=== PATIENT | female | born 1940 | race Caucasian/White ===

== ENCOUNTER 2024-12-21 01:45 | Inpatient (IN) | payer BC, MEDICARE ==
[~2024-12-21] VITALS: Ht 152.4 cm; Wt 68.9 kg
[2024-12-21] MEDS: LEVALBUTEROL 1.25 MG 0.5ML CONCENTRATE NEB NEB ONE ×2 (02:24)
[2024-12-21 02:30] LABS: VENOUS PH 7.383 UNITS (7.330-7.430)
[2024-12-21 02:31] LABS: VENOUS BASE EXCESS -2.7 (-2.0-2.0); VENOUS HCO3 22.0 MMOL/L (23.0-27.0); VENOUS O2 SATURATION 74.9 % (60.0-80.0); VENOUS PARTIAL PRESSURE CO2 37.7 mmHg (38.0-50.0); VENOUS PARTIAL PRESSURE O2 39.9 mmHg (30.0-50.0); VENOUS STANDARD HCO3 21.7 MMOL/L; VENOUS TOTAL CO2 23.1 MMOL/L (24.0-28.0)
[2024-12-21 02:35] LABS: BASO # 0.0 10^3/uL (0.0-0.2); BASO % 0.3 % (0.0-1.0); EOS # 0.1 10^3/uL (0.0-0.5); EOS % 0.9 % (0.0-3.0); LYMPH # 2.4 10^3/uL (1.5-5.0); LYMPH % 20.8 % (24.0-44.0); MONO # 0.7 10^3/uL (0.0-0.8); MONO % 6.2 % (2.0-8.0); NEUTROPHILS # 8.1 10^3/uL (1.5-8.5); NEUTROPHILS % 71.2 % (36.0-66.0); PLATELET COUNT, AUTOMATED 248 10^3/uL (150-450)
[2024-12-21 03:04] LABS: CPK CREATINE PHOSPHOKINASE 52.0 U/L (34-145)
[2024-12-21 03:05] LABS: ALT/SGPT 34.0 U/L (7.0-40); AST/SGOT 24.0 U/L (<34); CALCIUM LEVEL 9.7 MG/DL (8.3-10.6); CARBON DIOXIDE LEVEL 23.0 MMOL/L (20-31); CHLORIDE LEVEL 102.0 MMOL/L (98-107); CK-MB VALUE MASS 4.4 NG/ML (<3.6); CREATININE FOR GFR 0.66 MG/DL (0.55-1.30); GLOMERULAR FILTRATION RATE 85.4 (>32); MB/CK RELATIVE INDEX 8.46 (< OR =4); POTASSIUM SERUM 4.1 MMOL/L (3.5-5.1); SODIUM LEVEL 137.0 MMOL/L (136-145)
[2024-12-21] MEDS: NS (Normal Saline) 0.9% 1,000 ML IV ONE (03:52)
[2024-12-21] MEDS: cefTRIAXone SOD 1 GM in DEXTROSE 5% (D5W) ADV/MINI-BAG 50 ML IV ONE (03:53)
[2024-12-21] MEDS: AZITHROMYCIN 250 MG TABLET PO ONE (03:55)
[2024-12-21] MEDS: ASPIRIN 81 MG CHEWABLE TABLET PO ONE (03:55)
[2024-12-21] MEDS ORDERED: ISOVUE-370 76% 100 ML VIAL As Ordered ONE (04:03)
[2024-12-21 04:25] LABS: CPK CREATINE PHOSPHOKINASE 43.0 U/L (34-145)
[2024-12-21 04:32] LABS: CK-MB VALUE MASS 3.6 NG/ML (<3.6); MB/CK RELATIVE INDEX 8.37 (< OR =4)
[2024-12-21 06:21] LABS: CK-MB VALUE MASS 3.9 NG/ML (<3.6)
[2024-12-21 06:22] LABS: CPK CREATINE PHOSPHOKINASE 46.0 U/L (34-145); MB/CK RELATIVE INDEX 8.47 (< OR =4)
[2024-12-21] MEDS: FUROSEMIDE 20 MG/2 ML VIAL IV ONE (06:46)
[2024-12-21] MEDS ORDERED: HEPARIN SOD 5000 UNITS/ML 1 ML VIAL/SYRINGE IV PRN (06:55)
[2024-12-21] MEDS ORDERED: HEPARIN DRIP 25,000 UNITS in IV 1 EA IV SCH ×2 (06:55→07:00)
[2024-12-21 07:51] LABS: PLATELET COUNT, AUTOMATED 218 10^3/uL (150-450)
[2024-12-21] MEDS ORDERED: MED REC IN PROGRESS XX SCH (08:35)
[2024-12-21] MEDS ORDERED: NITROGLYCERIN 0.4 MG SUBL TABLET SL PRN (08:50)
[2024-12-21 09:08] LABS: CK-MB VALUE MASS 3.9 NG/ML (<3.6); MYOGLOBIN 52.0 NG/ML (<110)
[2024-12-21 09:18] LABS: CPK CREATINE PHOSPHOKINASE 48.0 U/L (34-145); MB/CK RELATIVE INDEX 8.12 (< OR =4)
[2024-12-21] MEDS: FUROSEMIDE 40 MG/4 ML VIAL IV ONE (09:44)
[2024-12-21] MEDS: METOPROLOL 5 MG/5 ML VIAL IV SCH (10:21)
[2024-12-21] MEDS: guaiFENesin ER TABLET 600 MG TAB PO SCH (11:39)
[2024-12-21] MEDS: INSULIN LISPRO (NovoLOG) PER UNIT SC SCH ×3 (12:00→20:46)
[2024-12-21] MEDS: LEVALBUTEROL 1.25 MG 0.5ML CONCENTRATE NEB INH SCH (12:07)
[2024-12-21] MEDS: IPRATROPIUM 0.5 MG/2.5 ML (0.02%) SOLN NEB INH SCH (12:07)
[2024-12-21 12:47] LABS: CALCIUM LEVEL 9.0 MG/DL (8.3-10.6); CARBON DIOXIDE LEVEL 20.0 MMOL/L (20-31); CHLORIDE LEVEL 101.0 MMOL/L (98-107); CREATININE FOR GFR 0.76 MG/DL (0.55-1.30); GLOMERULAR FILTRATION RATE 76.3 (>32); MAGNESIUM LEVEL 2.0 MG/DL (1.8-2.4); POTASSIUM SERUM 4.8 MMOL/L (3.5-5.1); SODIUM LEVEL 134.0 MMOL/L (136-145)
[2024-12-21] MEDS ORDERED: DEXTROSE 50% 50 ML SYRINGE IV PRN (13:00)
[2024-12-21] MEDS ORDERED: GLUCAGON INJ 1 MG VIAL SC PRN (13:00)
[2024-12-21] MEDS ORDERED: GLUCOSE 4 GM CHEW PO PRN (13:00)
[2024-12-21 13:27] LABS: ACETONE/KETONE 0.19 MMOL/L (0.02-0.27)
[2024-12-21 13:35] LABS: ESTIMATED AVERAGE GLUCOSE 200.0 MG/DL (60-110)
[2024-12-21] MEDS: LanTUS (INSULIN GLARGINE INJ) 1 UNITS/0.01 ML SC ONE (13:43)
[2024-12-21] MEDS: OMEPRAZOLE 20MG CAP PO SCH (13:43)
[2024-12-21] MEDS: INSULIN LISPRO (NovoLOG) PER UNIT SC STA (13:43)
[2024-12-21] MEDS ORDERED: OXYC-517 PO (14:45)
[2024-12-21] MEDS ORDERED: METH-1164 PO (14:45)
[2024-12-21] MEDS ORDERED: METF500T13 PO (14:45)
[2024-12-21] MEDS ORDERED: ALBU2.5V10 INH (14:45)
[2024-12-21] MEDS ORDERED: BACT800T5 PO (14:45)
[2024-12-21] MEDS ORDERED: PRED20TA PO (14:45)
[2024-12-21] MEDS ORDERED: HOME MED LIST COMPLETE! XX SCH (14:45)
[2024-12-21 15:47] LABS: CALCIUM LEVEL 9.3 MG/DL (8.3-10.6); CARBON DIOXIDE LEVEL 20.0 MMOL/L (20-31); CHLORIDE LEVEL 102.0 MMOL/L (98-107); CREATININE FOR GFR 0.76 MG/DL (0.55-1.30); GLOMERULAR FILTRATION RATE 76.3 (>32); MAGNESIUM LEVEL 2.0 MG/DL (1.8-2.4); PHOSPHORUS LEVEL 3.6 MG/DL (2.4-5.1); POTASSIUM SERUM 4.2 MMOL/L (3.5-5.1); SODIUM LEVEL 135.0 MMOL/L (136-145)
[2024-12-21 16:25] VITALS: BP 131/73
[2024-12-21 16:48] LABS: KETONE, URINE AUTO RFX NEGATIVE (NEGATIVE); LEUKOCYTE ESTERASE UR AUTO RFX NEGATIVE (NEGATIVE); NITRITE, URINE AUTO RFX NEGATIVE (NEGATIVE); RBC, URINE AUTO RFX 5 /HPF (0-3); SQUAM EPITHELIAL CELL UR AURFX 0 /HPF (0-6); WBC, URINE AUTO RFX 0 /HPF (0-3)
[2024-12-21 19:03] LABS: CALCIUM LEVEL 9.5 MG/DL (8.3-10.6); CARBON DIOXIDE LEVEL 25.0 MMOL/L (20-31); CHLORIDE LEVEL 102.0 MMOL/L (98-107); CK-MB VALUE MASS 3.1 NG/ML (<3.6); CPK CREATINE PHOSPHOKINASE 34.0 U/L (34-145); CREATININE FOR GFR 0.86 MG/DL (0.55-1.30); GLOMERULAR FILTRATION RATE 65.8 (>32); MAGNESIUM LEVEL 2.0 MG/DL (1.8-2.4); MB/CK RELATIVE INDEX 9.11 (< OR =4); POTASSIUM SERUM 4.4 MMOL/L (3.5-5.1); SODIUM LEVEL 137.0 MMOL/L (136-145)
[2024-12-21 19:32] VITALS: BP 127/81; TEMP 97.9; O2SAT 95
[2024-12-21 20:05] VITALS: BP 128/81; TEMP 97; O2SAT 94
[2024-12-21] MEDS: LIDOCAINE 5% PATCH TD SCH (20:46)
[2024-12-21] MEDS: HEPARIN SOD 5000 UNITS/ML 1 ML VIAL/SYRINGE SQ SCH (20:46)
[2024-12-21] MEDS ORDERED: guaiFENesin ER TABLET 600 MG TAB PO SCH (21:00)
[2024-12-22 00:24] VITALS: BP 129/84; TEMP 97.7; O2SAT 94
[2024-12-22 05:09] VITALS: BP 129/85; TEMP 97.2; O2SAT 93
[2024-12-22] MEDS: cefTRIAXone SOD 1 GM in DEXTROSE 5% (D5W) ADV/MINI-BAG 50 ML IV SCH (05:31)
[2024-12-22 05:32] VITALS: TEMP 97.6
[2024-12-22 05:40] LABS: BASO # 0.0 10^3/uL (0.0-0.2); BASO % 0.1 % (0.0-1.0); EOS # 0.0 10^3/uL (0.0-0.5); EOS % 0.0 % (0.0-3.0); LYMPH # 0.9 10^3/uL (1.5-5.0); LYMPH % 6.3 % (24.0-44.0); MONO # 0.3 10^3/uL (0.0-0.8); MONO % 2.0 % (2.0-8.0); NEUTROPHILS # 13.2 10^3/uL (1.5-8.5); NEUTROPHILS % 91.0 % (36.0-66.0); PLATELET COUNT, AUTOMATED 218 10^3/uL (150-450)
[2024-12-22 06:09] LABS: CK-MB VALUE MASS 2.9 NG/ML (<3.6)
[2024-12-22 06:11] LABS: CALCIUM LEVEL 8.8 MG/DL (8.3-10.6); CARBON DIOXIDE LEVEL 24.0 MMOL/L (20-31); CHLORIDE LEVEL 103.0 MMOL/L (98-107); CPK CREATINE PHOSPHOKINASE 32.0 U/L (34-145); CREATININE FOR GFR 0.69 MG/DL (0.55-1.30); GLOMERULAR FILTRATION RATE 84.5 (>32); MAGNESIUM LEVEL 2.1 MG/DL (1.8-2.4); MB/CK RELATIVE INDEX 9.06 (< OR =4); POTASSIUM SERUM 4.0 MMOL/L (3.5-5.1); SODIUM LEVEL 135.0 MMOL/L (136-145)
[2024-12-22] MEDS ORDERED: GLUCOSE 4 GM CHEW PO PRN (06:35)
[2024-12-22] MEDS ORDERED: DEXTROSE 50% 50 ML SYRINGE IV PRN (06:35)
[2024-12-22] MEDS ORDERED: GLUCAGON INJ 1 MG VIAL SC PRN (06:35)
[2024-12-22] MEDS: ASPIRIN 81 MG ENTERIC TABLET PO SCH (08:22)
[2024-12-22] MEDS: LanTUS (INSULIN GLARGINE INJ) 1 UNITS/0.01 ML SC ONE (08:25)
[2024-12-22] MEDS: INSULIN LISPRO (NovoLOG) PER UNIT SC SCH ×2 (09:38)
[2024-12-22] MEDS ORDERED: IPRATROPIUM 0.5 MG/2.5 ML (0.02%) SOLN NEB INH PRN (09:40)
[2024-12-22] MEDS ORDERED: LEVALBUTEROL 1.25 MG 0.5ML CONCENTRATE NEB INH PRN (09:40)
[2024-12-22] MEDS: LEVALBUTEROL 1.25 MG 0.5ML CONCENTRATE NEB NEB ONE (09:49)
[2024-12-22] MEDS: IPRATROPIUM 0.5 MG/2.5 ML (0.02%) SOLN NEB INH ONE (09:49)
[2024-12-22 12:00] VITALS: BP 140/81; TEMP 97.7; O2SAT 94
[2024-12-22 14:00] VITALS: BP 140/81; TEMP 97.7; O2SAT 94
[2024-12-22 19:05] LABS: CK-MB VALUE MASS 2.6 NG/ML (<3.6)
[2024-12-22 19:08] LABS: CPK CREATINE PHOSPHOKINASE 25.0 U/L (34-145); MB/CK RELATIVE INDEX 10.4 (< OR =4)
[2024-12-22 20:18] VITALS: BP 138/84; TEMP 98.2; O2SAT 93
[2024-12-23 04:57] VITALS: BP 128/77; TEMP 97.9; O2SAT 94
[2024-12-23 09:13] LABS: BASO # 0.0 10^3/uL (0.0-0.2); BASO % 0.1 % (0.0-1.0); EOS # 0.0 10^3/uL (0.0-0.5); EOS % 0.1 % (0.0-3.0); LYMPH # 0.6 10^3/uL (1.5-5.0); LYMPH % 5.2 % (24.0-44.0); MONO # 0.3 10^3/uL (0.0-0.8); MONO % 2.6 % (2.0-8.0); NEUTROPHILS # 11.0 10^3/uL (1.5-8.5); NEUTROPHILS % 91.2 % (36.0-66.0); PLATELET COUNT, AUTOMATED 260 10^3/uL (150-450)
[2024-12-23 09:40] LABS: CALCIUM LEVEL 9.4 MG/DL (8.3-10.6); CARBON DIOXIDE LEVEL 22.0 MMOL/L (20-31); CHLORIDE LEVEL 101.0 MMOL/L (98-107); CK-MB VALUE MASS 2.9 NG/ML (<3.6); CPK CREATINE PHOSPHOKINASE 19.0 U/L (34-145); CREATININE FOR GFR 0.72 MG/DL (0.55-1.30); GLOMERULAR FILTRATION RATE 81.4 (>32); MAGNESIUM LEVEL 2.2 MG/DL (1.8-2.4); MB/CK RELATIVE INDEX 15.26 (< OR =4); POTASSIUM SERUM 3.8 MMOL/L (3.5-5.1); SODIUM LEVEL 138.0 MMOL/L (136-145)
[2024-12-23 11:53] LABS: MYOGLOBIN 50.0 NG/ML (<110)
[2024-12-23 12:00] VITALS: BP 149/79; TEMP 98.1; O2SAT 97
[2024-12-23 12:23] LABS: CK-MB VALUE MASS 3.0 NG/ML (<3.6)
[2024-12-23 12:25] LABS: CPK CREATINE PHOSPHOKINASE 30.0 U/L (34-145); MB/CK RELATIVE INDEX 10.0 (< OR =4)
[2024-12-23] MEDS: AZITHROMYCIN 250 MG TABLET PO SCH (12:52)
[2024-12-23] MEDS: LIDOCAINE 5% PATCH TD SCH (12:57)
[2024-12-23 19:11] LABS: CK-MB VALUE MASS 3.7 NG/ML (<3.6)
[2024-12-23 19:13] LABS: CPK CREATINE PHOSPHOKINASE 35.0 U/L (34-145); MB/CK RELATIVE INDEX 10.57 (< OR =4)
[2024-12-23 19:45] VITALS: BP 150/92; TEMP 97.3; O2SAT 95
[2024-12-23] MEDS: INSULIN LISPRO (NovoLOG) PER UNIT SC SCH (20:30)
[2024-12-24 04:25] VITALS: BP 153/91; TEMP 97.5; O2SAT 96
[2024-12-24 06:46] LABS: BASO # 0.0 10^3/uL (0.0-0.2); BASO % 0.1 % (0.0-1.0); EOS # 0.0 10^3/uL (0.0-0.5); EOS % 0.2 % (0.0-3.0); LYMPH # 1.1 10^3/uL (1.5-5.0); LYMPH % 10.8 % (24.0-44.0); MONO # 0.6 10^3/uL (0.0-0.8); MONO % 6.2 % (2.0-8.0); NEUTROPHILS # 8.2 10^3/uL (1.5-8.5); NEUTROPHILS % 81.2 % (36.0-66.0); PLATELET COUNT, AUTOMATED 238 10^3/uL (150-450)
[2024-12-24 07:24] LABS: CK-MB VALUE MASS 3.7 NG/ML (<3.6)
[2024-12-24 07:27] LABS: CALCIUM LEVEL 9.0 MG/DL (8.3-10.6); CARBON DIOXIDE LEVEL 22 MMOL/L (20-31); CHLORIDE LEVEL 105 MMOL/L (98-107); CPK CREATINE PHOSPHOKINASE 22 U/L (34-145); CREATININE FOR GFR 0.76 MG/DL (0.55-1.30); GLOMERULAR FILTRATION RATE 76.3 (>32); MAGNESIUM LEVEL 2.2 MG/DL (1.8-2.4); MB/CK RELATIVE INDEX 16.81 (< OR =4); POTASSIUM SERUM 4.1 MMOL/L (3.5-5.1); SODIUM LEVEL 138 MMOL/L (136-145)
[2024-12-24] MEDS: predniSONE 20 MG TAB PO SCH (08:22)
[2024-12-24] MEDS ORDERED: PRED10TA2 PO (11:43)
[2024-12-24] MEDS ORDERED: ALCOPAD25 TOP (11:43)
[2024-12-24] MEDS ORDERED: BLOOKIT21 XX (11:43)
[2024-12-24] MEDS ORDERED: LANC30MI XX (11:43)
[2024-12-24] MEDS ORDERED: PEN-308 SC (11:43)
[2024-12-24] MEDS ORDERED: GLUC1TES2 XX (11:43)
[2024-12-24] MEDS ORDERED: LANTINJ4 SC (11:43)
[2024-12-24] MEDS ORDERED: INSU100I16 SQ (11:53)
[2024-12-24 12:00] VITALS: BP 140/84; TEMP 97.3; O2SAT 95
[2024-12-24] MEDS: LanTUS (INSULIN GLARGINE INJ) 1 UNITS/0.01 ML SC ONE (12:23)
[2024-12-24] MEDS: INSULIN LISPRO (NovoLOG) PER UNIT SC SCH (12:24)
[2024-12-24 20:21] VITALS: BP 139/91; TEMP 97.9; O2SAT 94
[2024-12-24] MEDS: CEFDINIR 300 MG CAP PO SCH (21:39)
[2024-12-25 03:40] VITALS: BP 117/90; TEMP 97.3; O2SAT 94
[2024-12-25 06:18] LABS: BASO # 0.0 10^3/uL (0.0-0.2); BASO % 0.2 % (0.0-1.0); EOS # 0.0 10^3/uL (0.0-0.5); EOS % 0.0 % (0.0-3.0); LYMPH # 1.5 10^3/uL (1.5-5.0); LYMPH % 14.1 % (24.0-44.0); MONO # 0.7 10^3/uL (0.0-0.8); MONO % 7.0 % (2.0-8.0); NEUTROPHILS # 7.9 10^3/uL (1.5-8.5); NEUTROPHILS % 75.5 % (36.0-66.0); PLATELET COUNT, AUTOMATED 227 10^3/uL (150-450)
[2024-12-25 06:49] LABS: CALCIUM LEVEL 8.8 MG/DL (8.3-10.6); CARBON DIOXIDE LEVEL 23.0 MMOL/L (20-31); CHLORIDE LEVEL 105.0 MMOL/L (98-107); CREATININE FOR GFR 0.64 MG/DL (0.55-1.30); GLOMERULAR FILTRATION RATE 86.0 (>32); MAGNESIUM LEVEL 2.2 MG/DL (1.8-2.4); POTASSIUM SERUM 4.0 MMOL/L (3.5-5.1); SODIUM LEVEL 137.0 MMOL/L (136-145)
[2024-12-25] MEDS: LanTUS (INSULIN GLARGINE INJ) 1 UNITS/0.01 ML SC SCH (08:38)
[2024-12-25 12:06] VITALS: BP 118/89; TEMP 97.3; O2SAT 94
[2024-12-30] MEDS ORDERED: predniSONE 20 MG TAB PO SCH (09:00)
[2025-01-02] MEDS ORDERED: predniSONE 10 MG TAB PO SCH (09:00)
[2025-01-05] MEDS ORDERED: predniSONE 20 MG TAB PO SCH (09:00)
== END 2024-12-25 16:08 | disposition home or self-care (01) | DRG 197 ==
LOC: M ED 01:45 → M ED INP 07:24 → M MSPAV 18:55
PROVIDERS: ADMIT General Practice; ATTEND General Practice
PROC: B246ZZZ Ultrasonography of Right and Left Heart (ICD-10-PCS; principal; 2024-12-24)
DX: J84.9 Interstitial pulmonary disease, unspecified (principal); J45.901 Unspecified asthma with (acute) exacerbation; I24.89 Other forms of acute ischemic heart disease; E87.29 Other acidosis; Z86.16 Personal history of COVID-19; I71.40 Abdominal aortic aneurysm, without rupture, unspecified; E09.9 Drug or chemical induced diabetes mellitus without complications; I10 Essential (primary) hypertension; M81.0 Age-related osteoporosis without current pathological fracture; I25.2 Old myocardial infarction; Z90.79 Acquired absence of other genital organ(s); Z96.641 Presence of right artificial hip joint; B34.8 Other viral infections of unspecified site; Z91.040 Latex allergy status; Z91.048 Other nonmedicinal substance allergy status; Z79.84 Long term (current) use of oral hypoglycemic drugs; Z77.22 Contact with and (suspected) exposure to environmental tobacco smoke (acute) (chronic)

== ENCOUNTER 2025-02-19 19:50 | Inpatient (IN) | payer BC, MEDICARE, OTHER ==
[~2025-02-19] VITALS: Ht 152.4 cm; Wt 68.1 kg
[~2025-02-19 19:50] MED LIST: ALBU2.5V10 INH; ALCOPAD25 TOP; BACT800T5 PO; BLOOKIT21 XX; GLUC1TES2 XX; INSU100I16 SQ; LANC30MI XX; LANTINJ4 SC; METF500T13 PO; METH-1164 PO; OXYC-517 PO; PEN-308 SC; PRED10TA2 PO; PRED20TA PO
[2025-02-19] MEDS: LEVALBUTEROL 1.25 MG 0.5ML CONCENTRATE NEB NEB ONE ×4 (20:35→22:08)
[2025-02-19 20:50] LABS: BASO # 0.1 10^3/uL (0.0-0.2); BASO % 0.5 % (0.0-1.0); EOS # 0.0 10^3/uL (0.0-0.5); EOS % 0.1 % (0.0-3.0); LYMPH # 1.2 10^3/uL (1.5-5.0); LYMPH % 9.8 % (24.0-44.0); MONO # 0.7 10^3/uL (0.0-0.8); MONO % 6.0 % (2.0-8.0); NEUTROPHILS # 10.3 10^3/uL (1.5-8.5); NEUTROPHILS % 83.2 % (36.0-66.0); PLATELET COUNT, AUTOMATED 381 10^3/uL (150-450)
[2025-02-19] MEDS: ACETAMINOPHEN *IV* 1,000 MG in IV 1 EA IV ONE (20:57)
[2025-02-19] MEDS: NS (Normal Saline) 0.9% 1,000 ML IV ONE (20:59)
[2025-02-19 21:15] LABS: CALCIUM LEVEL 8.5 MG/DL (8.3-10.6); CARBON DIOXIDE LEVEL 23.0 MMOL/L (20-31); CHLORIDE LEVEL 99.0 MMOL/L (98-107); CREATININE FOR GFR 0.81 MG/DL (0.55-1.30); GLOMERULAR FILTRATION RATE 70.7 (>32); MAGNESIUM LEVEL 1.5 MG/DL (1.8-2.4); POTASSIUM SERUM 3.6 MMOL/L (3.5-5.1); SODIUM LEVEL 136.0 MMOL/L (136-145)
[2025-02-19 21:19] LABS: CK-MB VALUE MASS 2.7 NG/ML (<3.6)
[2025-02-19 21:20] LABS: CPK CREATINE PHOSPHOKINASE 68.0 U/L (34-145); MB/CK RELATIVE INDEX 3.97 (< OR =4)
[2025-02-19] MEDS: PIPERACILLIN/TAZOBACTAM SOD 4.5 GM in DEXTROSE 5% (D5W) ADV/MINI-BAG 50 ML IV ONE (21:21)
[2025-02-19] MEDS: MAG SULF 1GM/100ML (MAG RUN) 1 GM in IV 1 EA IV ONE (21:49)
[2025-02-20] VITALS (14 sets, daily range): BP systolic 105–143; BP diastolic 59–71; TEMP 97–98; O2SAT 94–97
[2025-02-20] MEDS ORDERED: DEXTROSE 50% 50 ML SYRINGE IV PRN
[2025-02-20] MEDS ORDERED: GLUCAGON INJ 1 MG VIAL SC PRN
[2025-02-20] MEDS ORDERED: GLUCOSE 4 GM CHEW PO PRN
[2025-02-20] MEDS: DOXYCYCLINE HYCLATE 100 MG TABLET PO SCH (00:48)
[2025-02-20] MEDS: MAG SULF 1GM/100ML (MAG RUN) 1 GM in IV 1 EA IV ONE (00:48)
[2025-02-20] MEDS: NS (Normal Saline) 0.9% 1,000 ML IV ONE ×2 (00:49→05:52)
[2025-02-20] MEDS: LEVALBUTEROL 1.25 MG 0.5ML CONCENTRATE NEB NEB SCH (02:04)
[2025-02-20] MEDS: LEVALBUTEROL 1.25 MG 0.5ML CONCENTRATE NEB NEB PRN (02:06)
[2025-02-20 04:20] LABS: PLATELET COUNT, AUTOMATED 312 10^3/uL (150-450)
[2025-02-20] MEDS: PIPERACILLIN/TAZOBACTAM SOD 3.375 GM in DEXTROSE 5% (D5W) ADV/MINI-BAG 50 ML IV SCH (04:24)
[2025-02-20 04:50] LABS: CALCIUM LEVEL 7.9 MG/DL (8.3-10.6); CARBON DIOXIDE LEVEL 16.0 MMOL/L (20-31); CHLORIDE LEVEL 103.0 MMOL/L (98-107); CREATININE FOR GFR 0.76 MG/DL (0.55-1.30); GLOMERULAR FILTRATION RATE 76.3 (>32); POTASSIUM SERUM 3.4 MMOL/L (3.5-5.1); SODIUM LEVEL 138.0 MMOL/L (136-145)
[2025-02-20] MEDS: POTASSIUM CHLORIDE 10MEQ SR TABLET PO ONE (05:52)
[2025-02-20 06:13] LABS: VENOUS BASE EXCESS -9.1 (-2.0-2.0); VENOUS HCO3 17.2 MMOL/L (23.0-27.0); VENOUS O2 SATURATION 97.2 % (60.0-80.0); VENOUS PARTIAL PRESSURE CO2 38.7 mmHg (38.0-50.0); VENOUS PARTIAL PRESSURE O2 106.2 mmHg (30.0-50.0); VENOUS PH 7.266 UNITS (7.330-7.430); VENOUS STANDARD HCO3 17.2 MMOL/L; VENOUS TOTAL CO2 18.4 MMOL/L (24.0-28.0)
[2025-02-20] MEDS: TIOTROPIUM BROM 2.5MCG/ACTUATION 4GM INH INH SCH (07:35)
[2025-02-20] MEDS: BUDESONIDE 180 MCG INHALER INH SCH (08:00)
[2025-02-20] MEDS: LanTUS (INSULIN GLARGINE INJ) 1 UNITS/0.01 ML SC SCH (10:02)
[2025-02-20] MEDS: INSULIN LISPRO (NovoLOG) PER UNIT SC SCH ×2 (10:03→21:00)
[2025-02-20] MEDS: ENOXAPARIN 40 MG/0.4 ML SYRINGE (J1650 PER 10MG) SC SCH (10:03)
[2025-02-20] MEDS ORDERED: LANTINJ4 SC (10:13)
[2025-02-20] MEDS ORDERED: JARD1TAB PO (10:13)
[2025-02-20] MEDS ORDERED: PRED10TA2 PO (10:13)
[2025-02-20] MEDS ORDERED: HOME MED LIST COMPLETE! XX SCH (10:25)
[2025-02-20 12:07] LABS: CALCIUM LEVEL 7.9 MG/DL (8.3-10.6); CARBON DIOXIDE LEVEL 21.0 MMOL/L (20-31); CHLORIDE LEVEL 107.0 MMOL/L (98-107); CREATININE FOR GFR 0.66 MG/DL (0.55-1.30); GLOMERULAR FILTRATION RATE 85.4 (>32); POTASSIUM SERUM 3.7 MMOL/L (3.5-5.1); SODIUM LEVEL 141.0 MMOL/L (136-145)
[2025-02-20] MEDS: ACETAMINOPHEN 325 MG TAB PO PRN (20:39)
[2025-02-21] VITALS (13 sets, daily range): BP systolic 120–132; BP diastolic 63–75; TEMP 97–98.9; O2SAT 93–97
[2025-02-21 09:24] LABS: CALCIUM LEVEL 9.0 MG/DL (8.3-10.6); CARBON DIOXIDE LEVEL 20.0 MMOL/L (20-31); CHLORIDE LEVEL 106.0 MMOL/L (98-107); CREATININE FOR GFR 0.67 MG/DL (0.55-1.30); GLOMERULAR FILTRATION RATE 85.1 (>32); MAGNESIUM LEVEL 2.0 MG/DL (1.8-2.4); POTASSIUM SERUM 3.4 MMOL/L (3.5-5.1); SODIUM LEVEL 140.0 MMOL/L (136-145)
[2025-02-21] MEDS: INSULIN LISPRO (NovoLOG) PER UNIT SC SCH (18:18)
[2025-02-21] MEDS: POTASSIUM CHLORIDE 10% LIQ 20MEQ/15ML UDC PO ONE (18:19)
[2025-02-21] MEDS: LanTUS (INSULIN GLARGINE INJ) 1 UNITS/0.01 ML SC SCH (21:44)
[2025-02-22] VITALS (14 sets, daily range): BP systolic 144–166; BP diastolic 81–91; TEMP 97–97.2; O2SAT 92–95
[2025-02-22] MEDS: CEPACOL LOZENGE PO PRN (01:11)
[2025-02-22] MEDS: IPRATROPIUM 0.5 MG/ALBUTEROL 2.5 MG INH SOL UD 3 ML NEB SCH (01:17)
[2025-02-22] MEDS: BUDESONIDE 0.5 MG/2 ML INHALATION SUSPENSION NEB SCH (01:17)
[2025-02-22] MEDS: IPRATROPIUM 0.5 MG/ALBUTEROL 2.5 MG INH SOL UD 3 ML NEB PRN (06:34)
[2025-02-22 07:45] LABS: CALCIUM LEVEL 9.2 MG/DL (8.3-10.6); CARBON DIOXIDE LEVEL 23.0 MMOL/L (20-31); CHLORIDE LEVEL 106.0 MMOL/L (98-107); CREATININE FOR GFR 0.73 MG/DL (0.55-1.30); GLOMERULAR FILTRATION RATE 80.0 (>32); MAGNESIUM LEVEL 1.9 MG/DL (1.8-2.4); POTASSIUM SERUM 4.9 MMOL/L (3.5-5.1); SODIUM LEVEL 140.0 MMOL/L (136-145)
[2025-02-22] MEDS: predniSONE 10 MG TAB PO SCH (10:00)
[2025-02-22] MEDS: ALPRAZolam 0.5 MG TAB PO STA (10:55)
[2025-02-23] VITALS (10 sets, daily range): BP systolic 88–152; BP diastolic 55–88; TEMP 96.9–98; O2SAT 91–95
[2025-02-23] MEDS: IPRATROPIUM 0.5 MG/ALBUTEROL 2.5 MG INH SOL UD 3 ML NEB PRN (02:19)
[2025-02-23 05:41] LABS: CALCIUM LEVEL 9.0 MG/DL (8.3-10.6); CARBON DIOXIDE LEVEL 27.0 MMOL/L (20-31); CHLORIDE LEVEL 107.0 MMOL/L (98-107); CREATININE FOR GFR 0.76 MG/DL (0.55-1.30); GLOMERULAR FILTRATION RATE 76.3 (>32); MAGNESIUM LEVEL 1.9 MG/DL (1.8-2.4); POTASSIUM SERUM 4.3 MMOL/L (3.5-5.1); SODIUM LEVEL 144.0 MMOL/L (136-145)
[2025-02-23] MEDS: LIDOCAINE 5% PATCH TD SCH (09:03)
[2025-02-23] MEDS: CEFDINIR 300 MG CAP PO SCH (12:36)
[2025-02-24] VITALS (20 sets, daily range): BP systolic 86–140; BP diastolic 55–98; TEMP 97.6–98.4; O2SAT 83–99
[2025-02-24 05:29] LABS: CALCIUM LEVEL 9.1 MG/DL (8.3-10.6); CARBON DIOXIDE LEVEL 29.0 MMOL/L (20-31); CHLORIDE LEVEL 103.0 MMOL/L (98-107); CREATININE FOR GFR 0.69 MG/DL (0.55-1.30); GLOMERULAR FILTRATION RATE 84.5 (>32); MAGNESIUM LEVEL 1.8 MG/DL (1.8-2.4); POTASSIUM SERUM 4.1 MMOL/L (3.5-5.1); SODIUM LEVEL 144.0 MMOL/L (136-145)
[2025-02-24] MEDS: MIDODRINE 5 MG TAB PO ONE (06:28)
[2025-02-24] MEDS: NS 500 ML IV ONE (07:00)
[2025-02-24] MEDS: INSULIN LISPRO (NovoLOG) PER UNIT SC SCH (07:30)
[2025-02-24] MEDS: predniSONE 20 MG TAB PO SCH (09:26)
[2025-02-24] MEDS: MIDODRINE 5 MG TAB PO SCH (12:53)
[2025-02-24 14:32] LABS: URINE STREP PNEUMONIAE ANTIGEN Not Detected (Not Detected)
[2025-02-24] MEDS: LanTUS (INSULIN GLARGINE INJ) 1 UNITS/0.01 ML SC SCH (20:19)
[2025-02-25] VITALS: O2SAT 98
[2025-02-25 01:00] VITALS: O2SAT 98
[2025-02-25 02:00] VITALS: O2SAT 100
[2025-02-25 02:11] VITALS: BP 148/71; TEMP 97.6; O2SAT 99
[2025-02-25 05:56] LABS: CALCIUM LEVEL 8.6 MG/DL (8.3-10.6); CARBON DIOXIDE LEVEL 29.0 MMOL/L (20-31); CHLORIDE LEVEL 101.0 MMOL/L (98-107); CREATININE FOR GFR 0.68 MG/DL (0.55-1.30); GLOMERULAR FILTRATION RATE 84.8 (>32); MAGNESIUM LEVEL 2.0 MG/DL (1.8-2.4); POTASSIUM SERUM 4.7 MMOL/L (3.5-5.1); SODIUM LEVEL 139.0 MMOL/L (136-145)
[2025-02-25 07:57] VITALS: BP 164/84; TEMP 97.6; O2SAT 96
[2025-02-25] MEDS ORDERED: CEFD300CAP PO (08:13)
[2025-02-25] MEDS ORDERED: VENTAER INH (08:18)
[2025-02-25 09:03] VITALS: BP 164/84
[2025-02-25] MEDS: amLODIPine 5 MG TAB PO ONE (09:03)
== END 2025-02-25 11:16 | disposition home health service (06) | DRG 871 ==
LOC: M ED 19:50 → M ED INP 23:57 → M ICU 02-20 02:38
PROVIDERS: ADMIT Internal Medicine; ATTEND General Practice
DX: A41.9 Sepsis, unspecified organism (principal); J12.2 Parainfluenza virus pneumonia; J15.69 Pneumonia due to other Gram-negative bacteria; J44.1 Chronic obstructive pulmonary disease with (acute) exacerbation; I50.32 Chronic diastolic (congestive) heart failure; J44.0 Chronic obstructive pulmonary disease with (acute) lower respiratory infection; J84.9 Interstitial pulmonary disease, unspecified; E11.65 Type 2 diabetes mellitus with hyperglycemia; M48.54XD Collapsed vertebra, not elsewhere classified, thoracic region, subsequent encounter for fracture with routine healing; M81.0 Age-related osteoporosis without current pathological fracture; Z79.52 Long term (current) use of systemic steroids; Z79.84 Long term (current) use of oral hypoglycemic drugs; Z79.891 Long term (current) use of opiate analgesic; Z79.899 Other long term (current) drug therapy; Z91.040 Latex allergy status; Z91.048 Other nonmedicinal substance allergy status

== ENCOUNTER → 2025-03-24 | Outpatient (REF) | payer MEDICARE, BC ==
[~2025-03-24] MED LIST changes: +CEFD300CAP PO; +JARD1TAB PO; +VENTAER INH
[2025-03-24 18:30] LABS: ALT/SGPT 20.0 U/L (7.0-40); AST/SGOT 19.0 U/L (<34); CALCIUM LEVEL 9.3 MG/DL (8.3-10.6); CARBON DIOXIDE LEVEL 28.0 MMOL/L (20-31); CHLORIDE LEVEL 101.0 MMOL/L (98-107); CREATININE FOR GFR 0.78 MG/DL (0.55-1.30); GLOMERULAR FILTRATION RATE 73.9 (>32); POTASSIUM SERUM 4.2 MMOL/L (3.5-5.1); SODIUM LEVEL 139.0 MMOL/L (136-145)
[2025-03-24 18:31] LABS: BASO # 0.1 10^3/uL (0.0-0.2); BASO % 0.9 % (0.0-1.0); EOS # 0.2 10^3/uL (0.0-0.5); EOS % 2.4 % (0.0-3.0); LYMPH # 2.2 10^3/uL (1.5-5.0); LYMPH % 24.0 % (24.0-44.0); MONO # 0.8 10^3/uL (0.0-0.8); MONO % 8.2 % (2.0-8.0); NEUTROPHILS # 5.9 10^3/uL (1.5-8.5); NEUTROPHILS % 64.3 % (36.0-66.0); PLATELET COUNT, AUTOMATED 287 10^3/uL (150-450)
[2025-03-24 18:50] LABS: ESTIMATED AVERAGE GLUCOSE 146.0 MG/DL (60-110)
== END ==
LOC: M SFHCLERA 13:53
PROVIDERS: ATTEND Internal Medicine
DX: E11.65 Type 2 diabetes mellitus with hyperglycemia (principal)